=== PATIENT | male | born 1955 | race Caucasian/White ===

== ENCOUNTER → 2019-11-17 | Outpatient (CLI) | payer OTHER ==
[~2019-11-17] MED LIST: ANDRODERM2.5 MG/24 TD; ASPIRIN81 M1 PO; BAYER ASPIRIN C81 MG PO; COZAAR25 MG PO; GABAPENTIN400 MG PO; IMDUR SA60 M1 PO; LASIX20 MG PO; LIPITOR40 MG PO; NITRO-DUR0.4 MG/HR TD; PANTOPRAZOLE40 MG PO; PARAFON FORTE500 MG PO; PERCOCET 325 MG1 TA2 PO; PROZAC40 MG PO; TRAZODONE150 MG PO; VICO75300 PO; XANAX2 MG PO
[2019-11-17 10:22] LABS: BUN 14 mg/dl (7-24); CHLORIDE 109 mmol/L (98-107); CHOLESTEROL 165 mg/dL (<200); POTASSIUM 3.5 mmol/L (3.5-5.1); SODIUM 142 mmol/L (136-145); TRIGLYCERIDES 178 mg/dl (<150); VLDL CHOLESTEROL 36 mg/dL (6-40)
[2019-11-17 10:23] LABS: HDL CHOLESTEROL 44 mg/dl (40-60); LDL CHOLESTEROL 85 mg/dL (9-159)
== END | disposition home or self-care (01) ==
LOC: LAB 09:00
PROVIDERS: ATTEND Registered Nurse Flight
DX: R73.03 Prediabetes (principal); E78.5 Hyperlipidemia, unspecified